=== PATIENT | female | born 1965 | race Caucasian/White ===

== ENCOUNTER → 2023-01-25 | Outpatient (CLI) | payer OTHER ==
[~2023-01-25] MED LIST: CLARITIN PO; Depo-Prove150 MG/11 IM
== END | disposition home or self-care (01) ==
LOC: LAB SHORT 18:16 → LAB 18:16
DX: N39.0 Urinary tract infection, site not specified (principal)
CPT/HCPCS: 87077; 87086; 87186

== ENCOUNTER → 2023-06-09 | Outpatient (CLI) | payer OTHER ==
[2023-06-14 16:07] LABS: HPV 16 Negative (Negative); HPV 18 Negative (Negative); HPV OTHER HR TYPES Positive (Negative)
== END ==
LOC: LAB SHORT 16:03 → LAB 16:03
PROVIDERS: Obstetrics & Gynecology
DX: Z01.419 Encounter for gynecological examination (general) (routine) without abnormal findings (principal)
CPT/HCPCS: 87624; G0145

== ENCOUNTER 2023-06-27 09:20 | Day surgery (SDC) | payer OTHER ==
[~2023-06-27] VITALS: Ht 167.6 cm; Wt 103.0 kg
--- NOTE | 2023-06-27 11:49 | NUR ---
06/27/23 1149 Heather De La Cruz UNDER HEAD.
--- NOTE | 2023-06-27 12:23 | NUR ---
06/27/[address] AT BEDSIDE. PT CURRENTLY OFF O2 AND MAINTAINING AT 100%.
[2023-06-27 12:34] VITALS: BP 123/61
--- NOTE | 2023-06-27 12:44 | NUR ---
06/27/23 1244 Heike Del Angel PT DECLINES GETTING UP INTO CHAIR. ASSESSED LUNG SOUNDS AND GAVE PT JUICE AND CRACKERS.
== END 2023-06-27 13:25 | disposition home or self-care (01) ==
LOC: ORSCSDS 09:20
PROVIDERS: Obstetrics & Gynecology
PROC: 0UBC7ZX Excision of Cervix, Via Natural or Artificial Opening, Diagnostic (ICD-10-PCS; principal; 2023-06-27 10:30)
DX: R87.611 Atypical squamous cells cannot exclude high grade squamous intraepithelial lesion on cytologic smear of cervix (ASC-H) (principal); E11.9 Type 2 diabetes mellitus without complications; E66.9 Obesity, unspecified; Z68.36 Body mass index [BMI] 36.0-36.9, adult
CPT/HCPCS: 82947; 88305; A9270; J1100; J1885; J2250; J2405; J2704; J2765; J3010

== ENCOUNTER → 2024-08-17 | Outpatient (CLI) | payer OTHER | LOC: LAB SHORT 07:28 → LAB 07:28 | DX: L82.0 Inflamed seborrheic keratosis (principal); D49.2 Neoplasm of unspecified behavior of bone, soft tissue, and skin | CPT/HCPCS: 88305 ==